=== PATIENT | female | born 2000 | race African-American/Black ===

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

== ENCOUNTER 2019-04-01 09:11 | Emergency (ER) | payer BC ==
[2019-04-01 10:08] LABS: #Eosinphils 0.2 thou/uL (0.0-0.7); #Monocytes 0.6 thou/uL (0.11-0.59); #Neutrophils 5.7 thou/uL (1.40-6.50); %Basophils 0.3 % (0.0-1.0); %Lymphocytes 23.5 % (28.0-48.0); %Monocytes 7.5 % (0.0-4.0); %Neutrophils 66.7 % (31.0-61.0); Hemoglobin 10.3 g/dL (12.0-16.0); Mean Corpuscular HGB CONC 33.8 g/dL (32.0-36.0); Mean Corpuscular Hemoglobin 26.8 pg (25.0-35.0); Mean Corpuscular Volume 79.5 fL (78.0-98.0); Platelet Count 356 thou/uL (130-400); RBC Distribution Width 12.8 % (11.5-14.5); Red Blood Cell (RBC) Count 3.84 mill/uL (4.00-5.20); White Blood Cell (WBC) Count 8.5 thou/uL (4.8-10.8)
--- NOTE | 2019-04-01 10:27 | RAD ---
Chest 2 views HISTORY: Chest pain. Pleurisy. FINDINGS: Cardiac silhouette and pulmonary vasculature are unremarkable. Mediastinum is midline. No c onfluent airspace consolidation, pneumothorax, or pleural fluid. IMPRESSION: No active cardiopulmonary abnormalities are demonstrated.
[2019-04-01 10:28] LABS: ALT (SGPT) 12 U/L (8-55); AST (SGOT) 13 U/L (5-30); Alkaline Phosphatase 93 U/L (40-100); Anion Gap 11 mmol/L (10-20); BUN (Urea Nitrogen) 11 mg/dL (8.4-21.0); Bilirubin, Total 0.3 mg/dL (0.2-1.2); Calc. Creatinine Clearance 0 mL/min (70-130); Calcium 9.2 mg/dL (7.8-10.44); Carbon Dioxide 22 mmol/L (22-29); Chloride 107 mmol/L (98-107); Estimated GFR-MDRD Greater than 90; Globulin 3.6 g/dL (2.4-3.5); Glucose 84 mg/dL (70-105); Potassium 3.9 mmol/L (3.5-5.1); Protein, Total 7.6 g/dL (6.0-8.3); Sodium 136 mmol/L (136-145)
[2019-04-01 11:33] LABS: Pregnancy Test - Urine (BHCG) Negative (Negative); Pregu Control Background? CLEAR/WHITE (CLR/WHITE); Pregu Control Bar Appear? YES (CONTROL BAR); Specific Gravity 1.027 (1.002-1.036)
--- NOTE | 2019-04-01 12:16 | CT ---
CT arteriogram chest with IV contrast and 3-D imaging HISTORY: Chest pain. FINDINGS: There is good contrast opacification pulmonary arteries and thoracic aorta with normal bran hubert of the great vessels at the aortic arch. No pleural fluid, pneumothorax, or mediastinal adenopathy. IMPRESSION: Normal exam.
== END 2019-04-01 13:05 | disposition home or self-care (01) ==
LOC: ERS 09:11
DX: R07.81 Pleurodynia (principal); R07.89 Other chest pain; N93.9 Abnormal uterine and vaginal bleeding, unspecified
CPT/HCPCS: 36415; 71046; 71275; 80053; 81025; 85025; 85379; 93005

== ENCOUNTER 2020-03-09 12:49 | Emergency (ER) | payer BC, OTHER ==
[2020-03-09] MEDS ORDERED: Acetaminophen 325 MG TAB ONE (14:27)
[2020-03-09] MEDS ORDERED: Dexamethasone 10 MG/ML VIAL ONE (14:27)
== END 2020-03-09 15:29 | disposition home or self-care (01) ==
LOC: ERS 12:49
DX: J02.9 Acute pharyngitis, unspecified (principal); Z20.828 Contact with and (suspected) exposure to other viral communicable diseases; G43.909 Migraine, unspecified, not intractable, without status migrainosus
CPT/HCPCS: 87081; 87430; 99283; J1100

== ENCOUNTER 2022-06-20 23:10 | Emergency (ER) | payer OTHER, SELFPAY ==
[2022-06-20] MEDS ORDERED: Ondansetron ODT 4 MG TAB ONE (23:24)
== END 2022-06-20 23:58 | disposition home or self-care (01) ==
LOC: ERS 23:10
DX: F10.129 Alcohol abuse with intoxication, unspecified (principal); Y90.9 Presence of alcohol in blood, level not specified
CPT/HCPCS: 99284; Q0162

== ENCOUNTER 2025-01-21 04:51 | Emergency (ER) | payer OTHER ==
[2025-01-21] MEDS ORDERED: D5W IVPB SCH ×2 (05:30→06:15)
[2025-01-21] MEDS ORDERED: CLINDAMYCIN IVPB SCH ×2 (05:30→06:15)
[2025-01-21 05:33] LABS: #Basophils Less than 0.03 10x3/uL (0.0-0.2); #Eosinophils 0.11 10x3/uL (0.0-0.7); #Monocytes 0.51 10x3/uL (0.11-0.59); #Neutrophils 4.72 10x3/uL (1.40-6.50); %Basophils 0.1 % (0.0-1.0); %Eosinophils 1.5 % (0.0-10.0); %Lymphocytes 28.7 % (21.0-51.0); %Monocytes 6.8 % (0.0-10.0); %Neutrophils 62.6 % (42.0-75.0); Hematocrit 36.2 % (36.0-47.0); Hemoglobin 12.6 g/dL (12.0-16.0); Mean Corpuscular Hemoglobin 30.7 pg (27.0-31.0); Mean Corpuscular Volume 88.3 fL (78.0-98.0); Platelet Count 264 10x3/uL (130-400); Red Blood Cell (RBC) Count 4.10 mill/uL (4.20-5.40); White Blood Cell (WBC) Count 7.53 10x3/uL (4.8-10.8)
[2025-01-21 05:41] LABS: BHCG - Serum Negative (NEGATIVE); Pregs Control Background? CLEAR/WHITE (CLR/WHITE); Pregs Control Bar Appear? YES (CONTROL BAR)
[2025-01-21 05:59] LABS: MONO NEGATIVE CONTROL ZONE White (Negative) (White); MONO POSITIVE CONTROL Pink Line (Positive) (PINK/RED); Mononucleosis NEGATIVE (NEGATIVE)
[2025-01-21 06:31] LABS: Anion Gap 13 mmol/L (10-20); BUN (Urea Nitrogen) 11 mg/dL (7.0-18.7); Calc. Creatinine Clearance 0 mL/min (70-130); Calcium 8.8 mg/dL (7.8-10.44); Carbon Dioxide 23 mmol/L (22-29); Chloride 103 mmol/L (98-107); Glucose 91 mg/dL (70-105); Potassium 4.1 mmol/L (3.5-5.1); Sodium 135 mmol/L (136-145)
[2025-01-21] MEDS ORDERED: Iopamidol 370 76% 100 ML VIAL ONE (10:57)
== END 2025-01-21 07:37 | disposition home or self-care (01) ==
LOC: ERS 04:51
DX: J36 Peritonsillar abscess (principal)
CPT/HCPCS: 36415; 70491; 80048; 84703; 85025; 86308; 87081; 87430; 96374; J2270; J3490; Q9967